=== PATIENT | male | born 1980 | race Caucasian/White ===

== ENCOUNTER 2022-12-12 22:13 | Emergency (ER) | payer BC, SELFPAY ==
--- NOTE | 2022-12-12 | ECG_ITS ---
Test Reason : CHEST PAIN Blood Pressure : / mmHG Vent. Rate : 099 BPM Atrial Rate : 099 BPM P-R Int : 132 ms QRS Dur : 088 ms QT Int : 348 ms P-R-T Axes : 058 009 018 degrees QTc Int : 446 ms Normal sinus rhythm Cannot rule out Anterior infarct , age undetermined Abnormal ECG No previous ECGs available Referred By: Generic ED Physician Electronically Signed By:ANDREA RIVERA MD
[2022-12-12 22:18] VITALS: BP 133/77; PULSE 97; RESP 20; TEMP 36.1; O2SAT 96; BMI 41.2
[2022-12-12 22:32] LABS: Hematocrit 42.5 % (42.0-52.0); Hemoglobin 14.1 g/dl (14.0-18.0); Mean Corpuscular HGB Conc 33.2 g/dl (31.0-36.0); Mean Corpuscular Hemoglobin 28.1 pg (27.0-33.0); Mean Corpuscular Volume 84.8 fL (80.0-98.0); Mean Platelet Volume 9.2 fL (9.4-12.4); Platelet Count 338 X10*3/uL (160-400); Red Blood Count 5.01 X10*6/uL (4.60-5.80); Red Cell Distribution Width 13.2 % (11.0-16.0); White Blood Count 8.9 X10*3/uL (4.8-10.8)
[2022-12-12 22:57] LABS: Alanine Aminotransferase 41 U/L (0-40); Albumin Level 4.2 g/dL (3.5-5.0); Alkaline Phosphatase 64 U/L (39-117); Anion Gap 14 (12-20); Aspartate Amino Transferase 25 U/L (5-37); Bilirubin Total 0.4 mg/dL (0.0-1.0); Blood Urea Nitrogen 16 mg/dL (9-16); Calcium 9.5 mg/dL (8.4-10.2); Carbon Dioxide 24 mmol/L (22-29); Chloride 107 mmol/L (96-108); Creatinine Clr Calc Pharmacy 91.7; Estimated Glomerular Filt Rate 50; Glucose Random 172 mg/dL (60-115); Potassium 4.4 mmol/L (3.3-5.1); Sodium 141 mmol/L (135-145); Total Protein 7.2 g/dL (6.5-8.0)
[2022-12-12 23:05] LABS: Troponin-I High Sensitivity < 2.7 ng/L (<3.5-35.0)
[2022-12-13 02:05] VITALS: BP 149/95; PULSE 95; RESP 14; O2SAT 99
--- NOTE | 2022-12-13 02:30 | PC.NURSE ---
pt assessed, reported slurred speech, numbness and tingling around his mouth and left hand x 1 week with dizziness and left sided chest pain
--- OUTSIDE RECORDS SUMMARY | 2022-12-13 02:50 | XMS_ITS | Continuity of Care Document ---
Author Name Unknown Organization [facility] ter Address [address] [place] [id number]- Care Team Providers Care Pin Game Machine Inspector Name Role Phone Oleg Bush DO Primary Care Physician Encounter [facility] [place] Date(s): 11/20/21 - 01/29/[address] [address] Attending Physician: Marcell Garrett MD Admitting Physician: Marcell Garrett MD Allergies, Adverse Reactions, Alerts Substance Reaction Severity Status shellfish swelling Active Immunizations Given and Recorded Vaccine Date Status Refusal Reason tetanus/diphtheria/pertussis, acel(Tdap) 02/28/12 Given Medications atorvastatin 20 mg oral tablet 1 tablet = 20 mg, By Mouth, Daily, # 30 tablet, 0 Refills, Maintenance, 07/15/21 14:19:00 EST, Tablet, Partial fill upon patient request if the prescription is for a schedule II opioid drug. Start Date: 07/15/21 Status: Ordered DayQuil 0 Refills, Maintenance Start Date: 12/19/11 Status: Ordered ibuprofen 600 mg oral tablet 1 tablet = 600 mg, By Mouth, Every 6 to 8 hours, PRN Pain, # 24 tablet, 0 Refills, Maintenance Start Date: 12/19/11 Status: Ordered metFORMIN 500 mg oral tablet 1 tablet = 500 mg, By Mouth, Daily, with meals, # 30 tablet, 0 Refills, Maintenance, 07/15/21 14:18:00 EST, Tablet, Partial fill upon patient request if the prescription is for a schedule II opioid drug. Start Date: 07/15/21 Status: Ordered pantoprazole 40 mg oral delayed release tablet 1 tablet = 40 mg, By Mouth, Daily, # 30 tablet, 0 Refills, Maintenance, 07/15/21 14:18:00 EST, EC Tablet Start Date: 07/15/21 Status: Ordered penicillin V potassium 500 mg oral tablet (obsolete) 1 tablet = 500 mg, By Mouth, 3 times a day, # 30 tablet, 0 Refills, Maintenance Start Date: 12/19/11 Stop Date: 12/29/11 Status: Ordered Tylenol Cough and Sore Throat Daytime oral liquid 30 mL, By Mouth, Every 6 hours, 0 Refills, Maintenance Start Date: 12/19/11 Status: Ordered Problem List Condition Effective Dates Status Health Status Inform ant Prediabetes(Confirmed) Active Seasonal allergies(Confirmed) Active Severe obesity(Confirmed) Active Social History Social History Type Response Smoking Status Never smoker entered on: 09/30/17 Sex
--- OUTSIDE RECORDS SUMMARY | 2022-12-13 02:50 | XMS_ITS | Continuity of Care Document ---
Author Name Unknown Organization [facility] Address Unknown Care Team Providers Care Senior Field Engineer Name Role Phone Oleg Bush DO Primary Care Physician [place] [facility] [place] Date(s): 11/01/21 - 11/08/21 [facility] Attending Physician: Marcell Garrett MD Referring Physician: Oleg Bush DO Allergies, Adverse Reactions, Alerts Substance Reaction Severity [...] Active Seasonal allergies(Confirmed) Active Severe obesity(Confirmed) Active Vital Signs Most recent to oldest [Reference Range]: 1 Height 183 cm (11/01/21 8:42 AM) Weight 139.2 kg (11/01/21 8:42 AM) Pulse Rate [55-90 bpm] 84 bpm (11/01/21 8:42 AM) Body Mass Index [18.5-24.99] 41.57 *>HHI* (11/01/21 8:42 AM) Blood Pressure [90-138/55-84 mm Hg] 140/ 86mm Hg *H* (11/01/21 8:42 AM) Respiratory Rate [16-30 br/min] 16 br/mi n (11/01/21 8:42 AM) Temperature [96.8-100.4 DegF] 96.9 DegF (11/01/21 8:42 AM) Blood pressure sites Arm, right (11/01/21 8:42 AM) Temperature Route Temporal (11/01/21 8:42 AM) Weight Obtained Via Standing scale (11/01/21 8:42 AM) Social History Social History Type Response Smoking Status Never smoker entered on: 09/30/17 Sex
--- OUTSIDE RECORDS SUMMARY | 2022-12-13 02:50 | XMS_ITS | Continuity of Care Document ---
Author Name Unknown Organization [facility] Address [address] [place] [id number] Care Team Providers Care Marble Mason Name Role Phone Oleg Bush DO Primary Care Physician Encounter [facility] [place] Date(s): 09/30/21 - 10/07/[address] [address] Attending Physician: Lata Barrientos NP Admitting Physician: Lata Barrientos NP Referring Physician: Susan Mohamud MD Allergies, Adverse Reactions, Alerts Substance Reaction Severity Status shellfish Active Immunizations Given and Recorded Vaccine Date [...] Refills, Maintenance Start Date: 12/19/11 Status: Ordered Ibuprofen Maintenance, 12/19/11 11:20:29 Start Date: 12/19/11 Status: Ordered ibuprofen 600 [...] Inform ant Prediabetes(Confirmed) Active Seasonal allergies(Confirmed) Active Social History Social History Type Response Smoking Status Never smoker entered on: 09/30/17 Sex
--- OUTSIDE RECORDS SUMMARY | 2022-12-13 02:50 | XMS_ITS | Continuity of Care Document ---
Author Name Unknown Organization [facility] Address Unknown Care Team Providers Care Litigation Associate Name Role Phone Oleg Bush DO Primary Care Physician Encounter [facility] [place] Date(s): 11/20/21 - 02/16/22 [facility] Attending Physician: Kartik Oreilly Referring Physician: Oleg Bush DO Allergies, Adverse [...]
--- OUTSIDE RECORDS SUMMARY | 2022-12-13 02:50 | XMS_ITS | Continuity of Care Document ---
Author Name Unknown Organization [facility] Address Unknown Care Team Providers Care Transportation Maintenance Worker Name Role Phone Oleg Bush DO Primary Care Physician Encounter [facility] [place] Date(s): 01/17/22 - 02/16/22 [facility] Attending Physician: Sebastian Vela Admitting Physician: Sebastian Vela Referring Physician: Sebastian Vela Allergies, Adverse Reactions, Alerts Substance Reaction Severity [...]
--- OUTSIDE RECORDS SUMMARY | 2022-12-13 02:50 | XMS_ITS | Continuity of Care Document ---
Author Name Unknown Organization [facility] Address [address] [place] [id number]- Care Team Providers Care Rn Immunology Name Role Phone Susan Mohamud MD Primary Care Physician [phone] [facility] [place] - 08/09/21 [facility] [address] [address] Attending Physician: Sebastian Vela Admitting Physician: Sebastian Vela Referring Physician: AdmtrSebastian Allergies, Adverse Reactions, Alerts Substance Reaction Severity [...]
--- OUTSIDE RECORDS SUMMARY | 2022-12-13 02:50 | XMS_ITS | Continuity of Care Document ---
Author Name Unknown Organization [facility] Address [address] [place] [id number] Care Team Providers Care Miller Helper Name Role Phone Oleg Bush DO Primary Care Physician Encounter [facility] [place] Date(s): 09/30/21 - 10/30/[address] [address] Attending Physician: Sebastian Vela Admitting Physician: Sebastian [...]
--- NOTE | 2022-12-13 03:19 | PC.NURSE ---
assumed care of patient aox4 no apparent distress, at bedside does not want to wait much longer provider aware no orders/further testing at this time
[2022-12-13 03:30] VITALS: BP 128/83; PULSE 78; RESP 20; TEMP 36.4; O2SAT 97
== END 2022-12-13 05:22 | disposition left against medical advice (07) ==
PROVIDERS: Internal Medicine; Emergency Provider Emergency Medicine; PCP Internal Medicine
DX: R07.89 Other chest pain (principal); R20.2 Paresthesia of skin
CPT/HCPCS: 36415; 80053; 84484; 85027; 93005; 99283; 99284